=== PATIENT | female | born 1945 | race Caucasian/White ===

== ENCOUNTER 2023-03-10 05:01 | Observation (INO) ==
--- NOTE | 2023-03-04 12:22 | PAT Medication Instructions ---
Medication Instructions Date of Service March 04, 2023 Home Medications acetaminophen 500 mg tablet 500 mg PO BID cyanocobalamin (vitamin B-12) 500 mcg tablet (Vitamin B-12) 500 mcg PO QAM lisinopril 2.5 mg tablet 2.5 mg PO QAM multivitamin 1 tab PO QAM omeprazole 20 mg capsule,delayed release 20 mg PO QAM simvastatin 40 mg tablet (Zocor) 40 mg PO QAM sucralfate 1 gram tablet 1 g PO ACHS PRN severe heartburn DO NOT take the morning of surgery cyanocobalamin (vitamin B-12) 500 mcg tablet (Vitamin B-12) 500 mcg PO QAM lisinopril 2.5 mg tablet 2.5 mg PO QAM multivitamin 1 tab PO QAM sucralfate 1 gram tablet 1 g PO ACHS PRN severe heartburn Take morning of surgery With a small sip of water, OTHERWISE NOTHING TO EAT OR DRINK AFTER MIDNIGHT: acetaminophen 500 mg tablet 500 mg PO BID omeprazole 20 mg capsule,delayed release 20 mg PO QAM simvastatin 40 mg tablet (Zocor) 40 mg PO QAM Take evening before surgery acetaminophen 500 mg tablet 500 mg PO BID sucralfate 1 gram tablet 1 g PO ACHS PRN severe heartburn (if needed) Other Notes If you have any questions please call us at [phone] or [phone] or [phone] or [phone]
--- NOTE | 2023-03-04 15:26 | Anesthesiology Consultation ---
Date of Service March 04, 2023 Assessment & Plan (1) Encounter for pre-operative examination: - PCP response below and case discussed with Dr. Cai who advised patient can proceed with surgery without echo, but not as outpatient joint. Pt and surgeon's office made aware. - PCP response 03/05/23: "...no murmur on exam 03/05/23 echo not indicated." - medical clearance 03/25/23: "...pre-op...right knee...no murmur appreciated...approved for proposed surgery-benefits outweigh risks..." - Case discussed in detail with Dr. Razo who advised pt to have echocardiogram prior to surgery. Optimization form completed to be faxed to PCP. Pt and surgeon's office made aware. - Outpatient joint pathway: Per surgeon and patient, requesting outpatient joint program. Pt's son states he and another son will be staying in the home with his parents during pt's post-op course. Pt requiring admission post operatively. Plan for recheck with MARIELENA MONTOAY due to possibility that patient may have a roommate. OR aware. [place] order placed - [facility] Chart Review Chart Review: Acceptable Risk for Surgery and Patient seen in Pre Admission Testing Teaching & Discussion Pre-Anesthesia Teaching/Discussion Notes: Instructed NPO after midnight before surgery, except medications with 15 cc of water. Medication instructions p rovided according to the PAT guidelines. History Surgery Operation Date: 03/10/23 07:30 Proposed Procedures p Right Total Knee Arthroplasty - Dalton Eason MD Height/Weight Height: 5 ft 4 in Weight: 116.12 kg Allergies Allergy/AdvReac Type Severity Reaction Status Date / Time Sulfa (Sulfonamide Allergy Intermediate SLOW HEART Verified 03/10/23 05:31 Antibiotics) RATE Medications Home Medications Medication Instructions Recorded Confirmed Last Taken acetaminophen 500 mg tablet 500 mg PO BID 03/04/23 03/10/23 03/10/23 03:30 cyanocobalamin (vitamin B-12) 500 500 mcg PO QAM 03/04/23 03/10/23 02/24/23 07:00 mcg tablet (Vitamin B-12) lisinopril 2.5 mg tablet 2.5 mg PO QAM 03/04/23 03/10/23 03/09/23 08:00 multivitamin 1 tab PO QAM 03/04/23 03/10/23 02/24/23 07:00 omeprazole 20 mg capsule,delayed 20 mg PO QAM 03/04/23 03/10/23 03/10/23 02:30 release simvastatin 40 mg tablet (Zocor) 40 mg PO QAM 03/04/23 03/10/23 03/09/23 20:00 sucralfate 1 gram tablet 1 g PO ACHS PRN severe heartburn 03/04/23 03/10/23 Unknown Active Medications Generic Name Dose Route Start Last Admin Trade Name Freq PRN Reason Stop Dose Admin Lactated Ringer's 1,000 mls @ 15 mls/hr 03/10/23 06:00 03/10/23 06:10 Lr IV 03/10/23 18:00 15 mls/hr .Q24H PIPER Administration Past Medical History Medical History Anemia hx (~) Cardiac murmur as a child - no current issues Degenerative disc disease cervical GERD (gastroesophageal reflux disease) controlled, stable per pt History of bleeding ulcers ~ Hyperlipidemia Hypertension controlled, stable per pt Kidney stones no surgery - passed on her own Ulcerative colitis doing well, no current issues. Patient denies h/o stroke, seizures, heart attack, heart failure, DM, blood clots or blood transfusions. Exercise / Class Metabolic Activity III < 4 Walking/Shop/Light housework (denies chest discomfort or shortness of breath with usual activities, does not have steps home) Past Family History Family History Other No family history of adverse response to anesthesia Past Surgical History Surgical History History of appendectomy History of bilateral tubal ligation History of cholecystectomy History of colonoscopy History of esophagogastroduodenoscopy (EGD) History of repair of rectocele History of tonsillectomy History of umbilical hernia repair Hx of vaginal hysterectomy Past Anesthesia History No Hx of Anesthesia Complications and No Family Hx of Anesthesia Complications History of PONV No Hx of Motion Sickness and History of PONV (denies needing scop patch) Social History Smoking Status: Never smoker Do You Dip or Chew Tobacco: No Hx Alcohol Use: No Hx Substance Use: No substance use type: does not use Review of Systems Patient denies chest pain, shortness of breath, dyspnea on exertion, snoring, witnessed apneas, fever, chills, cough, wheezing, dizziness, presyncope, or palpitations. Physical Exam Vital Signs Last Vital Signs Temp 98.1 F 03/10/23 05:27 Pulse 102 H 03/10/23 05:27 Resp 20 03/10/23 05:27 BP 178/77 H 03/10/23 05:27 Pulse Ox 96 03/10/23 05:27 O2 Del Method Room Air 03/10/23 05:27 Vitals BP 124/76 P 91 SP02 95% on RA RESP 18 Physical Full cervical extension range of motion without pain TMD 3.5 finger bredaths Mallampati Score 2 Dentition: intact, denies Lungs: normal respiratory effort. Clear throughout to auscultation, no adventitious breath sounds Cardiac: regular rate and rhythm, 2/6 systolic murmur Carotid arteries: negative bruit bilat Lab Results Anesthesia Preop Results Results Anesthesia Widget: WBC 5.08 K/ul (4.8-10.8) 03/04/23 Hgb 13.8 g/dl (12.0-16.0) 03/04/23 Hct 42.2 % (37.0-47.0) 03/04/23 Plt 180 K/uL (130-400) 03/04/23 Na 143 mmol/L (136-145) 03/04/23 K 3.9 mmol/L (3.5-5.1) 03/04/23 Cl 108 mmol/L (98-107) H 03/04/23 CO2 27 mmol/L (21-32) 03/04/23 BUN 10 mg/dl (6-23) 03/04/23 Creat 0.87 mg/dl (0.6-1.2) 03/04/23 Glucose Level 86 mg/dl (70-99(Fasting)) 03/04/23 PT 10.5 Seconds (9.0-12.0) 03/04/23 PTT 25.6 Seconds (21.0-31.0) 03/04/23 INR 1.0 (0.9-1.1) 03/04/23 SARS-CoV-2, RNA, NAAT NEGATIVE (NEGATIVE) 03/10/23 Blood Type O Positive 03/04/23 Antibody Screen NEGATIVE 03/04/23 Testing Electrocardiogram Date: 03/04/23 NSR, rate 92 bpm RBBB Chest X-Ray Date: 03/04/23 Lung volumes are normal. Lungs are clear. There is no pneumothorax or pleural effusion. Cardiac size is normal. Mediastinal contours are normal. There is no evidence for pulmonary edema. IMPRESSION: No acute cardiopulmonary findings. COVID-19 Risk Screen Screening Information COVID-19 Screen Date: 03/04/23 Exposure 21 Days Family/Household +COVID Last 21 Days: No Exposure 10 Days Any COVID Exposure Last 10 Days: No Symptoms Last 10 Days Experienced COVID Sx Last 10 Days: No + COVID 0-90 Days COVID + in Last 0-90 Days: No
[2023-03-10] MEDS ORDERED: ACETAMINOPHEN 500 MG TAB PO SCH (06:00)
[2023-03-10] MEDS ORDERED: ROPIVACAINE 0.5% HCL/PF 150 MG, BUPIVACAINE 0.75% MPF 20 ML, EPINEPHrine 0.15 MG, Ketor... INFIL SCH (06:00)
[2023-03-10] MEDS ORDERED: FAMOTIDINE 20 MG TAB PO SCH (06:00)
[2023-03-10] MEDS ORDERED: LR 500ML BOLUS, THEN 15ML/HR IV SCH (06:00)
[2023-03-10] MEDS ORDERED: dexAMETHasone 4 MG TAB PO SCH (06:00)
[2023-03-10] MEDS ORDERED: CeleBREX 200 MG CAP PO SCH (06:00)
[2023-03-10] MEDS ORDERED: LACTATED RINGER'S 1,000 ML IV SCH (06:00)
[2023-03-10] MEDS ORDERED: ROPIVACAINE 0.5% 5 MG/ML 30 ML VIAL ONE (06:20)
[2023-03-10] MEDS ORDERED: BUPIVACAINE 0.5 % 5 MG/1 ML PF 10ML VIAL ONE (06:20)
[2023-03-10] MEDS ORDERED: MIDAZOLAM HCL 1 MG/ML 2ML VIAL ONE (06:44)
[2023-03-10] MEDS ORDERED: fentaNYL citrate PF 100 MCG/2 ML VIAL ONE (06:44)
[2023-03-10] MEDS ORDERED: ePHEDrine sulfate 50 MG/ML AMP IV PRN (07:02)
[2023-03-10] MEDS ORDERED: fentaNYL citrate PF 100 MCG/2 ML VIAL IV PRN (07:02)
[2023-03-10] MEDS ORDERED: ONDANSETRON INJ 2 MG/ML 2 ML VIAL IV PRN ×2 (07:02→09:01)
[2023-03-10] MEDS ORDERED: ATROPINE SULFATE 0.1 MG/ML 10ML SYR IV PRN (07:02)
[2023-03-10] MEDS ORDERED: ORTHO JOINT ANESTHETIC ONE (07:06)
[2023-03-10] MEDS ORDERED: TRANEXAMIC ACID / 0.7% NACL 1000MG/100ML BAG IV ONE (07:13)
--- NOTE | 2023-03-10 07:14 | History & Physical Report ---
Date of Service March 10, 2023 Assessment & Plan (1) Osteoarthritis of right knee: Plan: I recommended a right total knee replacement. I explained the risk benefits and alternatives to the patient. She understands and has consented to proceed. History of Present Illness Chief Complaint: Right knee pain Primary Care Provider: Kasey Dang MD Caryl is a 77-year-old woman with right knee osteoarthritis. After the failure of conservative treatment I recommended proceeding with a right total knee replacement. Allergies Allergy/AdvReac Type Severity Reaction Status Date / Time Sulfa (Sulfonamide Allergy Intermediate SLOW HEART Verified 03/10/23 05:31 Antibiotics) RATE Home Medications Medication Instructions Recorded Confirmed Type acetaminophen 500 mg tablet 500 mg PO BID 03/04/23 03/10/23 History cyanocobalamin (vitamin B-12) 500 500 mcg PO QAM 03/04/23 03/10/23 History mcg tablet (Vitamin B-12) lisinopril 2.5 mg tablet 2.5 mg PO QAM 03/04/23 03/10/23 History multivitamin 1 tab PO QAM 03/04/23 03/10/23 History omeprazole 20 mg capsule,delayed 20 mg PO QAM 03/04/23 03/10/23 History release simvastatin 40 mg tablet (Zocor) 40 mg PO QAM 03/04/23 03/10/23 History sucralfate 1 gram tablet 1 g PO ACHS PRN severe heartburn 03/04/23 03/10/23 History Past Med/Surg History Medical History Anemia hx (~) Cardiac murmur as a child - no current issues Degenerative disc disease cervical GERD (gastroesophageal reflux disease) controlled, stable per pt History of bleeding ulcers ~ Hyperlipidemia Hypertension controlled, stable per pt Kidney stones no surgery - passed on her own Ulcerative colitis doing well, no current issues. Surgical History History of appendectomy History of bilateral tubal ligation History of cholecystectomy History of colonoscopy History of esophagogastroduodenoscopy (EGD) History of repair of rectocele History of tonsillectomy History of umbilical hernia repair Hx of vaginal hysterectomy Family History Other No family history of adverse response to anesthesia Social History Smoking Status: Never smoker Second Hand Exposure: No; Do You Dip or Chew Tobacco: No; Tobacco Cessation Education Requested by Patient: No Hx Alcohol Use: No Hx Substance Use: No Preferred Language: Georgian Communication Ability: Effective Mangle Feeder Required: No Beliefs That Will Affect Care: None Current Living Situation: Spouse Other Information That Helps Us Care for You: No Feels Safe at Home: Yes Safety Concerns: Feels Safe At This Time Assistive Devices: Denture - Upper, Denture - Lower and Glasses Physical Exam Constitutional: Well-developed, well-nourished, no acute distress Eyes: PERRL, conjunctivae normal, anicteric sclerae ENMT: external ear and nose normal, oropharynx normal Neck: Neck supple, no masses Respiratory: Clear to auscultation Cardiovascular: Regular rate and rhythm Gastrointestinal (Abdomen): Soft nontender Musculoskeletal: Right knee, decreased range of motion, decreased strength. Tender medially and laterally. Skin: Intact Results & Data Results & Data Vital Signs (Past 12 Hours) Vital Signs Temp Pulse Resp BP Pulse Ox O2 Del Method 03/10/23 05:27 36.7 C 102 H 20 178/77 H 96 Room Air
[2023-03-10] MEDS ORDERED: dexAMETHasone 4 MG TAB PO ONE (07:15)
[2023-03-10] MEDS ORDERED: FAMOTIDINE 20 MG TAB ONE (07:15)
[2023-03-10] MEDS ORDERED: CeleBREX 200 MG CAP ONE (07:15)
[2023-03-10] MEDS ORDERED: ACETAMINOPHEN 500 MG TAB ONE (07:15)
[2023-03-10] MEDS: TRANEXAMIC ACID / 0.7% NACL 1,000 MG/100 ML BAG IV SCH (07:26)
[2023-03-10] MEDS: ceFAZolin 2,000 MG/15 ML IV PUSH IV ONE ×2 (07:29→11:08)
[2023-03-10] MEDS ORDERED: LIDOCAINE 2% MPF LOCAL 5 ML VIAL ONE (08:05)
[2023-03-10] MEDS ORDERED: PROPOFOL IV EMULSION 10 MG/ML 20 ML VIAL IV ONE (08:05)
[2023-03-10] MEDS ORDERED: ePHEDrine sulfate 50 MG/ML SYR ONE (08:40)
--- NOTE | 2023-03-10 09:00 | Operative Report ---
Post Operative Report Pre & Post Diagnosis Operation Date: 03/10/23 07:30 Pre-Op Diagnosis: Primary Osteoarthritis Knee Right Post-Op Diagnosis: Primary Osteoarthritis Knee Right I identified the patient and participated in the time-out.: Yes Procedure Operation Date: 03/10/23 07:30 Actual Procedures p Right Total Knee Arthroplasty(Right) - Dalton Eason MD Surgeon Dalton Eason MD [employer] Samira Garcia PA-C Estimated Blood Loss 5 Findings Consistent with Post-Op Diagnosis Osteoarthritis right knee Specimens Bone and cartilage right knee Anesthesia Type MAC Spinal Regional Complications No complications Indications Caryl is a 77-year-old woman with right knee osteoarthritis. After the failure of conservative treatment I recommended a right total knee replacement. I explained the risk benefits and alternatives to her and she consented to proceed. Description of Procedure Implants: Subhash triathlon cemented cruciate retaining total knee replacement. Femur size 5. Tibia size 4. Polyethylene size 4 x 11 mm cruciate stabilized. Patella size 36 mm symmetrical. Procedure: The patient was taken to the operating room and after verifying their identity and confirming the operative side spinal anesthesia and a regional block was administered. A nonsterile tourniquet was placed on the operative leg and the operative leg was sterilely prepped and draped in usual fashion. After exsanguinating the leg and inflating the tourniquet a 6 inch incision was made over the patella and carried sharply through subcutaneous tissue. A medial parapatellar arthrotomy was performed, the patella was everted, and planed to a thickness of 14 mm. The appropriate size patella was trialed and the drill holes were completed. The knee was flexed and the femur cleaned of soft tissue. The femoral intramedullary guide was utilized to take a 5 valgus cut 10 mm total resection. The distal femur cut was completed. The cutting guide was removed. The AP sizing guide was placed in the correct size determined. The appropriately sized sized 4 in 1 cutting guide was placed and its position confirmed with the epicondyle axis and anterior cortex. The cuts were comp leted. The tibia was subluxed forward and the extra medullary tibial guide was placed and pinned in place. A 2 mm resection was measured on the medial tibial plateau perpendicular to the long axis of the tibia. The proximal tibia was cut. The guide was removed. A lamina rn heart was placed with the knee in 90 of flexion in the remaining meniscus and posterior soft tissue were removed. The PCL was preserved. 20 cc of local injection was utilized in the posterior capsule and soft tissues. The knee was balanced in flexion and extension utilizing the gap certified executive chef. The tibia was subluxed forward and the appropriately sized trial was placed and pinned in place. The femoral trial was placed and the appropriate size poly-was utilized to achieve full extension, full flexion and good stability to varus and valgus stress. Trial components were all removed. The knee was thoroughly irrigated with pulse lavage, bacteriocidal wash, and a repeat pulse lavage. 20 cc of local injection was utilized in the medial tissues and 20 cc in the lateral tissues. Antibiotic cement was mixed using vacuum technique in the tibial and femoral components were cemented in place. The poly-was inserted and the knee held in full extension while the cement hardened. The patella was cemented and clamped. Excess cement was carefully removed. After the cement hardened range of motion was once again assessed and noted to be full including full extension and good stability to varus and valgus stress with central patellar tracking. The knee was irrigated with pulse lavage, a bacteriocidal wash, and a repeat pulse lavage. 20 cc of local was used in the anterior subcutaneous tissues. The arthrotomy was closed with #1 Ethibond, the remaining incision with 2-0 Vicryl and maribel. A silver dressing was applied and a compression wrap. The patient tolerated the procedure well and there were no intraoperative complications. Samira Garcia PA-C assisted in all aspects of the procedure including patient positioning, prepping and draping, manipulation of surgical instruments and retractors, wound closure, dressing placement, and compression wrap placement. I attest to the content of the Intraoperative Record and any orders documented therein. Any exceptions are noted below.
[2023-03-10] MEDS ORDERED: oxyCODONE HCL IR 5 MG TAB (IMMEDIATE RELEASE) PO PRN (09:01)
[2023-03-10] MEDS ORDERED: MAGNESIUM HYDROXIDE SUSP 30 ML UDC PO PRN (09:01)
[2023-03-10] MEDS ORDERED: NALOXONE HCL 0.4 MG/1 ML VIAL/CARP IV PRN (09:01)
[2023-03-10] MEDS ORDERED: bisacodyL 10 MG SUPP PR PRN (09:01)
[2023-03-10] MEDS ORDERED: SUCRALFATE 1 GM TAB PO PRN (09:09)
--- NOTE | 2023-03-10 10:06 | Anesthesiology Progress Note ---
Date of Service March 10, 2023 Anesthesia Post Procedure Vital Signs Vital Signs: Temp Pulse Pulse Resp BP BP Pulse Ox 03/10/23 10:00 97.7 F 77 12 149/73 H 97 03/10/23 09:50 86 17 141/69 H 94 03/10/23 09:40 87 14 142/78 H 95 03/10/23 09:30 84 13 132/71 100 03/10/23 09:22 97.5 F L 94 H 21 137/58 L 100 03/10/23 05:27 98.1 F 102 H 20 178/77 H 96 O2 Del Method O2 Flow Rate 03/10/23 10:00 Room Air 03/10/23 09:50 Room Air 03/10/23 09:40 Room Air 03/10/23 09:30 Oxymask 4 03/10/23 09:22 Oxymask 6 03/10/23 05:27 Room Air Transfer of Care Handoff Completed per policy Notes Mental Status: alert / awake / arousable and participated in evaluation Patient Amnestic to Procedure: Yes Nausea / Vomiting: adequately controlled Pain: adequately controlled Airway Patency, RR, SpO2: stable & adequate BP & HR: stable & adequate Hydration State: stable & adequate Neuraxial Anesthesia: was administered and sensory block is resolving Anesthetic Complications: no major complications apparent and Pt Satisfied with anesthetic care
[2023-03-10] MEDS: SODIUM CHLORIDE 0.9% 1000ML 1,000 ML IV SCH ×2 (10:43→20:19)
--- NOTE | 2023-03-10 11:01 | Hospitalist Consultation ---
Date of Consultation March 10, 2023 Assessment & Plan (1) Osteoarthritis of right knee: s/p Right Total Knee Arthroplasty(Right) - Dalton Eason MD EBL 5cc PPI on board for GI prophylaxis, carafate if needed prn Pain control/bowel regimen/PT/OT per primary service DVT prophylaxis with ASA 81mg BID Monitor labs in AM (2) Hypertension: BP stable 139/73 Hold lisinopril for now/monitor labs in AM/monitor for any hypotension. If significant HTn can resume sooner. (3) Hyperlipidemia: On simvastatin 40mg daily, continued (4) GERD (gastroesophageal reflux disease): On protonix while inpatient -- resume her omeprazole at discharge no reflux at present hx ulcers -- did get steroids w/ surgery can add pepcid vs increase PPI to BID if needed carafate available prn severe heartburn as well as she takes at home Plan Thank you for allowing hospitalist service to participate in the care of Mrs Kerns. Hospitalist service will follow up in AM/check labs/neuro exam, but hopefully patient able to discharge tomorrow after evals by PT/OT. Please call with any questions/concerns. History of Present Illness Reason for Consultation: medical management Requesting Physician: Dr Eason Attending Physician: Dalton Eason MD History of Present Illness 77yo female with PMHx significant for HTN, HLD, GERD, OA, ulcerative colitis presented for RIGHT total knee with Dr Eason 03/10. EBL 5cc. Doing well post-op. Titrated to room air. No shortness of breath or chest pain. Hasn't eating anything yet. Pain controlled, toes mobile but block still in place and decreased ability to plantar/dorsiflex at present. No hx DVT/PE. Watches what she eats/avoids greasy foods w/ her UC but not on any meds or recent treatment for issues with such. Sh e does note when she has to go to the bathroom she does have some urgency to move her bowels and would like nursing to be aware of such. No machuca placed. Had been having ongoing pain to her knee, worsened in the past two months, requiring surgery. No headache/lightheadedness, dizziness, abdominal pain, nausea or vomiting at present. No machuca placed. Planning for discharge tomorrow per patient - and two sons at bedside. Allergies Allergy/AdvReac Type Severity Reaction Status Date / Time Sulfa (Sulfonamide Allergy Intermediate SLOW HEART Verified 03/10/23 05:31 Antibiotics) RATE Home Medications Medication Instructions Recorded Confirmed Type acetaminophen 500 mg tablet 500 mg PO BID 03/04/23 03/10/23 History cyanocobalamin (vitamin B-12) 500 500 mcg PO QAM 03/04/23 03/10/23 History mcg tablet (Vitamin B-12) lisinopril 2.5 mg tablet 2.5 mg PO QAM 03/04/23 03/10/23 History multivitamin 1 tab PO QAM 03/04/23 03/10/23 History omeprazole 20 mg capsule,delayed 20 mg PO QAM 03/04/23 03/10/23 History release simvastatin 40 mg tablet (Zocor) 40 mg PO QAM 03/04/23 03/10/23 History sucralfate 1 gram tablet 1 g PO ACHS PRN severe heartburn 03/04/23 03/10/23 History Patient History Medical History Anemia hx (~) Cardiac murmur as a child - no current issues Degenerative disc disease cervical GERD (gastroesophageal reflux disease) controlled, stable per pt History of bleeding ulcers ~ Hyperlipidemia Hypertension controlled, stable per pt Kidney stones no surgery - passed on her own Ulcerative colitis doing well, no current issues. Surgical History History of appendectomy History of bilateral tubal ligation History of cholecystectomy History of colonoscopy History of esophagogastroduodenoscopy (EGD) History of repair of rectocele History of tonsillectomy History of umbilical hernia repair Hx of vaginal hysterectomy Family History Other No family history of adverse response to anesthesia Social History Smoking Status: Never smoker Second Hand Exposure: No; Do You Dip or Chew Tobacco: No; Tobacco Cessation Education Requested by Patient: No Hx Alcohol Use: No Hx Substance Use: No Preferred Language: Polish Communication Ability: Effective Counselling Psychologist Required: No Beliefs That Will Affect Care: None Current Living Situation: Spouse Other Information That Helps Us Care for You: No Feels Safe at Home: Yes Safety Concerns: Feels Safe At This Time Assistive Devices: Denture - Upper, Denture - Lower and Glasses Review of Systems Review of Systems: All systems reviewed & are unremarkable except as noted in HPI & below Physical Exam Physical Exam: General: WD/WN obese female sitting up in bed post-op, and two sons at bedside, NAD HEENT: head normocephalic, atraumatic, mmm, trachea midline Resp: CTA, no w/c, on room air CV: RRR, no significant m/r/g, trace LE edema, calves nontender RLE rudy wrap in place/ice pack cap refill wnl, pulses palpable GI: +BS, soft/NT : no machuca MSK/Neuro: dressing/rudy wrap to R knee. Ice pack in place Toes mobile. Decreased ability to dorsiflex/plantar flex RLE compared to the left at present due to nerve block no facial droop/slurred speech Psych: AOx3, pleasant and cooperative Results & Data Results & Data Vital Signs (Past 12 Hours) Vital Signs Temp Pulse Pulse Resp BP BP Pulse Ox 03/10/23 10:30 36.9 C 89 16 139/73 95 03/10/23 10:20 82 12 151/66 H 95 03/10/23 10:10 78 17 140/70 95 03/10/23 10:00 36.5 C 77 12 149/73 H 97 03/10/23 09:50 86 17 141/69 H 94 03/10/23 09:40 87 14 142/78 H 95 03/10/23 09:30 84 13 132/71 100 03/10/23 09:22 36.4 C L 94 H 21 137/58 L 100 03/10/23 05:27 36.7 C 102 H 20 178/77 H 96 O2 Del Method O2 Flow Rate 03/10/23 10:30 Room Air 03/10/23 10:20 Room Air 03/10/23 10:10 Room Air 03/10/23 10:00 Room Air 03/10/23 09:50 Room Air 03/10/23 09:40 Room Air 03/10/23 09:30 Oxymask 4 03/10/23 09:22 Oxymask 6 03/10/23 05:27 Room Air Laboratory Results 03/10/23 Range/Units 05:20 SARS-CoV-2, RNA, NAAT NEGATIVE (NEGATIVE) PG Care Time/CCT Total # of Minutes Spent Total Time Spent with Patient: Total time spent is greater than 50% in coordination of care (as documented) at patient's floor/unit and/or counseling patient: Coding Level of Care Code 07651 IN/OBS CONSULT LVL 3,45M Diagnoses Osteoarthritis of right knee M17.11 Hypertension I10 Hyperlipidemia E78.5 GERD (gastroesophageal reflux disease) K21.9 CPT Codes Outpatient - [id number] ([id number])
[2023-03-10] MEDS: ACETAMINOPHEN 500 MG TAB PO SCH ×2 (15:28→21:53)
[2023-03-10] MEDS: ceFAZolin 2000MG 2,000 MG/15 ML SYR IV SCH ×2 (17:07→23:47)
[2023-03-10] MEDS ORDERED: SENNA 8.6 MG TAB PO SCH (21:00)
[2023-03-10] MEDS: CeleBREX 200 MG CAP PO SCH (21:54)
[2023-03-10] MEDS: DOCUSATE SODIUM 100 MG CAP PO SCH (21:55)
[2023-03-10] MEDS: ASPIRIN 81 MG ECTAB PO SCH (21:55)
[2023-03-11] MEDS: TRANEXAMIC ACID / 0.7% NACL 1,000 MG/100 ML BAG IV SCH (05:17)
[2023-03-11] MEDS ORDERED: ceFAZolin 2000MG 2,000 MG/15 ML SYR IV SCH (06:00)
[2023-03-11] MEDS: ACETAMINOPHEN 500 MG TAB PO SCH (06:19)
[2023-03-11] MEDS ORDERED: dexAMETHasone 10 MG in SYRINGE 0 ML IV ONE (08:00)
--- NOTE | 2023-03-11 08:16 | Orthopedic Progress Note ---
Date of Service March 11, 2023 Assessment & Plan (1) Osteoarthritis of right knee: Plan: Postop day 1 PT/OT protocols. Weightbearing as tolerated. DVT prophylaxis-aspirin p.o. twice daily, SCDs, DAQUAN clark Pain management as written. DC planning-patient is planning for discharge to home today. Planning for outpatient PT Admission and Anticipated Discharge Date Admission Date: March 10, 2023 Subjective Postop day 1 Patient currently going through her OT session. States that she is progressing well. She is ambulating in the room independently with her walker. She is having some mild pain in the right knee but feels otherwise well. Denies shortness of breath, chest pain, lightheadedness. She is hoping to go home today. Physical Exam Physical Exam: Dressings are clean, dry, and intact. Calves are soft nontender. Neurovascular intact. Toes are mobile. She has good dorsiflexion plantarflexion of the right foot. Results & Data Vital Signs (Past 12 Hours) Vital Signs Temp Pulse Resp BP Pulse Ox O2 Del Method 03/11/23 06:03 36.8 C 82 15 122/73 95 Room Air 03/11/23 02:30 36.7 C 84 19 147/78 H 95 Room Air 03/10/23 23:13 36.6 C 86 18 132/72 95 Room Air
[2023-03-11 08:26] LABS: Hematocrit (blood only) 35.8 % (37.0-47.0); Hemoglobin 11.8 g/dl (12.0-16.0); Mean Corpuscular Hemoglobin 31.6 pg (25.0-34.0); Mean Corpuscular Volume 95.7 fL (80.0-100.0); Mean Platelet Volume 10.3 fL (9.4-12.4); Platelet Count 178 K/uL (130-400); RDW Coefficient of Variation 13.7 % (11.5-14.5); RDW Standard Deviation 48.5 fL (36.4-46.3); Red Blood Count 3.74 M/uL (4.20-5.40); White Blood Count 8.53 K/ul (4.8-10.8)
[2023-03-11 08:37] LABS: BUN Creatinine Ratio 13.7 (10-20); Calcium 8.6 mg/dl (8.6-10.3); Est GFR (African American) 67.4 ml/min; Est GFR (Non-African American) 58.2 ml/min; Potassium 3.4 mmol/L (3.5-5.1)
[2023-03-11] MEDS ORDERED: MULTIVITAMIN TAB PO SCH (09:00)
[2023-03-11] MEDS ORDERED: PANTOprazole 40 MG TAB PO SCH (09:00)
[2023-03-11] MEDS ORDERED: lisinopril 2.5 MG TAB PO SCH (09:00)
[2023-03-11] MEDS ORDERED: SIMVASTATIN 40 MG TAB PO SCH (09:00)
[2023-03-11] MEDS: DOCUSATE SODIUM 100 MG CAP PO SCH (09:21)
[2023-03-11] MEDS: CeleBREX 200 MG CAP PO SCH (09:21)
[2023-03-11] MEDS: ASPIRIN 81 MG ECTAB PO SCH (09:22)
[2023-03-11] MEDS ORDERED: POTASSIUM CHLORIDE 10 MEQ TABCR PO STA (12:05)
--- NOTE | 2023-03-14 11:06 | Discharge Summary ---
Date of Service March 14, 2023 Admission HPI Per Admitting Provider Caryl is a 77-year-old woman with right knee osteoarthritis. After the failure of conservative treatment I recommended proceeding with a right total knee replacement. Principal Diagnosis DJD Right Knee Discharge Exam Dressings are clean, dry, and intact. Calves are soft nontender. Neurovascular intact. Toes are mobile. She has good dorsiflexion plantarflexion of the right foot. Eyes PERRL, conjunctivae normal, anicteric sclerae ENMT external ear and nose normal, oropharynx normal Discharge Data Allergies Allergy/AdvReac Type Severity Reaction Status Date / Time Sulfa (Sulfonamide Allergy Intermediate SLOW HEART Verified 03/10/23 05:31 Antibiotics) RATE Consultations 03/10/23 09:01 Consult Hospitalist Routine Procedures Performed Operation Date: 03/10/23 07:30 Actual Procedures p Right Total Knee Arthroplasty(Right) - Dalton Eason MD Ordered Studies 03/10/23 05:00 US - OR guided needle placemen Routine Hospital Course (1) Osteoarthritis of right knee: Postop day 1 PT/OT protocols. Weightbearing as tolerated. DVT prophylaxis-aspirin p.o. twice daily, SCDs, DAQUAN clark Pain management as written. DC planning-patient is planning for discharge to home today. Planning for outpatient PT Total Time Total Time Spent Total Time Spent (In Minutes): 30 minutes Discharge Plan Discharge Items Patient Disposition: Home - Self-Care Reason For Visit: Primary Osteoarthritis Knee Right Discharge Diagnosis: Osteoarthritis right knee Activity: Per Instructions section Weightbearing: Right weightbearing Weightbearing Comment: As tolerated with walker Non-emergency contact: Surgeon Call non-emergency contact if: you have any medication questions, your pain is not controlled, your temperature is above 101.5, your wound has increased redness and your wound has increased drainage Follow-up/Referrals: Dalton Eason MD [Surgeon] - (Follow-up with Dr. Eason or his PA in 2 weeks from the day of surgery for your first postoperative visit.) PCP,NO [Physician] - Diet: Regular Addtl Attending Provider Instructions: Take aspirin 81mg twice daily x 30 days for DVT prophylaxis. Post-op medications sent to your pharmacy on file. Please call Dr. Eason's office for any questions about your medications. Post-op pain medication sent in to patient's pharmacy on file. Post-op dressing to remain in place for 7 days. Dressing can be removed 7 days following surgery by home nursing. Patient may shower 7 days following surgery. Do not submerge the knee. WBAT. Discharge to home with home nursing and home physical therapy. Pending Studies at Discharge: No Stand-Alone Forms: My BreathalEyes, Smoking Cessation Medications and DC Order Prescriptions: Continued multivitamin Tablet 1 tab PO QAM sucralfate 1 gram Tablet 1 g PO ACHS PRN (Reason: severe heartburn) acetaminophen 500 mg Tablet 500 mg PO BID cyanocobalamin (vitamin B-12) [Vitamin B-12] 500 mcg Tablet 500 mcg PO QAM omeprazole 20 mg Capsule,Delayed Release(Dr/Ec) 20 mg PO QAM lisinopril 2.5 mg Tablet 2.5 mg PO QAM simvastatin [Zocor] 40 mg Tablet 40 mg PO QAM Discharge Orders: Discharge Order (Routine); Ordered 03/11/23 Ordered By: Norberto Belcher/Other Patient Handouts: DVT Post Op Prevention Admission Data Admit Date/Time: 03/10/23 09:01 Attending Provider: Dalton Eason Admit Provider: Dalton Eason Primary Care Provider: Kasey Dang Other Providers: Samira Yates Other Interventions: Discharge Summary Assessment (RN) Last Done: 03/11/23 09:40
== END 2023-03-11 12:07 | disposition home or self-care (01) ==
LOC: ASU 05:01 → 3E 05:01

== ENCOUNTER 2024-08-05 17:10 | Observation (INO) ==
--- NOTE | 2024-08-05 17:45 | Emergency Department Note ---
History of Present Illness General Chief complaint: Fall Stated complaint: FALL, L KNEE LAC Time Seen by Provider: 08/05/24 17:21 History of Present Illness Maximum Pain Intensity: 7 This is a 78-year-old female that presents to the emergency department via EMS with complaints of "right knee laceration". The patient is an excellent historian and notes that earlier today she tripped on a rug and fell. She landed on a rather hard floor and just underneath the rug was concrete. She landed on both of her anterior knees and notes that the right knee sustained a laceration. She denies striking any sharp objects. She denies striking the head. No anticoagulant use. She does note history of bilateral total knee replacements, right knee replaced in March 2023. The patient denies any other areas of pain beyond the right knee. Ambulance was summoned and she was brought here for further evaluation and management. She does not think her tetanus vaccine is UTD. Home Medications Medication Instructions Recorded Confirmed Type acetaminophen 500 mg tablet 500 mg PO BID 03/04/23 03/10/23 History cyanocobalamin (vitamin B-12) 500 500 mcg PO QAM 03/04/23 03/10/23 History mcg tablet (Vitamin B-12) lisinopril 2.5 mg tablet 2.5 mg PO QAM 03/04/23 03/10/23 History multivitamin 1 tab PO QAM 03/04/23 03/10/23 History omeprazole 20 mg capsule,delayed 20 mg PO QAM 03/04/23 03/10/23 History release simvastatin 40 mg tablet (Zocor) 40 mg PO QAM 03/04/23 03/10/23 History sucralfate 1 gram tablet 1 g PO ACHS PRN severe heartburn 03/04/23 03/10/23 History Allergies Allergy/AdvReac Type Severity Reaction Status Date / Time Sulfa (Sulfonamide Allergy Intermediate SLOW HEART Verified 03/10/23 05:31 Antibiotics) RATE Past Med/Surg History Problem List Laceration of knee, right (Acute) GERD (gastroesophageal reflux disease) controlled, stable per pt Hyperlipidemia Hypertension controlled, stable per pt Osteoarthritis of right knee Left knee DJD Medical History Degenerative disc disease cervical Kidney stones no surgery - passed on her own Ulcerative colitis doing well, no current issues. History of bleeding ulcers ~ Anemia hx (~) Cardiac murmur as a child - no current issues Surgical History History of repair of rectocele Hx of vaginal hysterectomy History of bilateral tubal ligation History of umbilical hernia repair History of cholecystectomy History of appendectomy History of colonoscopy History of esophagogastroduodenoscopy (EGD) History of tonsillectomy Family History Other No family history of adverse response to anesthesia Social History Smoking Status: Never smoker Second Hand Exposure: No; Do You Dip or Chew Tobacco: No; Tobacco Cessation Education Requested by Patient: No Hx Alcohol Use: No Hx Substance Use: No Preferred Language: Beninese Communication Ability: Effective Traffic Officer Required: No Beliefs That Will Affect Care: None Current Living Situation: Spouse Other Information That Helps Us Care for You: No Feels Safe at Home: Yes Safety Concerns: Feels Safe At This Time Assistive Devices: Denture - Upper and Denture - Lower Review of Systems A total of 10 systems reviewed and were otherwise negative Physical Exam Vital Signs Vital Signs - 24 hr 08/05/24 17:17 08/05/24 19:16 08/05/24 21:06 Temperature 37.0 C Temperature Source Oral Pulse Rate 100 H 78 Pulse Rate [Finger] 92 H Pulse Rhythm Regular Pulse Rhythm [Finger] Regular Pulse Strength Normal Pulse Strength [Finger] Normal Respiratory Rate 18 18 16 Respiratory Effort / Characteristics Non-Labored Non-Labored Spontaneous Respiratory Depth Normal Normal Respiratory Pattern Regular Regular Blood Pressure 153/86 H 136/75 Blood Pressure [Left Arm] 142/70 H Blood Pressure Mean 108 Blood Pressure Mean [Left Arm] 94 Blood Pressure Position Lying Pulse Oximetry 96 97 97 Oxygen Delivery Method Room Air Room Air Room Air Sepsis Recent Fever Within 48 Hours No Sepsis New/Unexplained Change in Mental Status N/A Sepsis Action Taken by Nursing No Action Required VITAL SIGNS - Vital signs and nursing notes were reviewed. Stable and afebrile. GENERAL -78-year-old female appearing her stated age who is in no acute distress. Communicates well with provider and answers questions appropriately. SKIN -large horizontally oriented laceration overlying the right knee. This does track deep into the tissues. HEAD - NC/AT. EYES - Sclera anicteric. NOSE -no epistaxis. MOUTH/OROPHARYNX - Without perioral cyanosis. No blood in the oropharynx. NECK -no C-spine tenderness. LUNGS -clear to auscultation CARDIAC - RRR EXTREMITIES - No clubbing or peripheral cyanosis. +5/5 strength noted in UE/LE bilaterally. There is a laceration to the knee noted. There is tenderness at the laceration site but otherwise right lower extremity nontender. NEUROLOGIC - Cranial nerves grossly intact. PSYCH -alert, oriented and pleasant on exam Course Administered Medications Acetaminophen (Acetaminophen 500 Mg Tab) 1,000 mg PO Q8 [facility] Stop: 09/05/24 05:59 Last Admin: 08/06/24 05:26 Dose: 1,000 mg Documented By: THANH Cyanocobalamin (Cyanocobalamin (B-12) 500 Mcg Tablet) [facility] [place] Stop: 09/05/24 08:59 Last Admin: 08/06/24 08:12 Dose: 500 mcg Documented By: KARON Docusate Sodium (Docusate Sodium 100 Mg Cap) 100 mg PO BID [facility] Stop: 09/05/24 08:59 Last Admin: 08/06/24 08:13 Dose: Not Given Documented By: KARON Hydromorphone HCl (Hydromorphone Inj 0.5 Mg/0.5 Ml Syr) 0.5 mg IV Q4H PRN PRN Reason: Pain or Pre PT Stop: 08/19/24 22:30 Last Admin: 08/06/24 00:05 Dose: 0.5 mg Documented By: THANH Cefazolin Sodium (Ancef 2000mg) 2,000 mg in 15 mls @ 3.75 mls/min IV Q8H [facility]; Protocol Stop: 08/06/24 12:03 Last Admin: 08/06/24 04:09 Dose: 3.75 mls/min Documented By: THANH Lisinopril (Lisinopril 2.5 Mg Tab) 2.5 mg PO QAM [facility] Stop: 09/05/24 08:59 Last Admin: 08/06/24 08:11 Dose: 2.5 mg Documented By: KARON Multivitamins (Multivitamin Tab) 1 tab [facility] [place] Stop: 09/05/24 08:59 Last Admin: 08/06/24 08:11 Dose: 1 tab Documented By: KARON Pantoprazole Sodium (Pantoprazole 40 Mg Tab) 40 [facility] [place] Stop: 09/05/24 08:59 Last Admin: 08/06/24 08:12 Dose: 40 mg Documented By: KARON Simvastatin (Simvastatin 40 Mg Tab) 40 mg PO [facility] Stop: 09/05/24 08:59 Last Admin: 08/06/24 08:13 Dose: 40 mg Documented By: KARON Trolamine Salicylate (Trolamine Salicylate 10% Crm 255 Appln/85 Gm Tube) 1 appln EXT TID PRN PRN Reason: Pain Stop: 09/05/24 01:08 Last Admin: 08/06/24 02:10 Dose: 1 appln Documented By: THANH Discontinued Medications Bupivacaine HCl/Epinephrine Bitart (Bupivacaine/Epinephrine 0.5% Mpf 1:200,000 30 Ml Vial) Confirm Administered Dose 30 ml .ROUTE .STK-MED ONE Stop: 08/05/24 21:28 Last Admin: 08/05/24 22:20 Dose: 30 ml Documented By: ROB Diphtheria/Pertussis/Tetanus Vacc (Diphther/Tetan/Pertus Vaccine (Tdap, Adol/Adult) 0.5ml) 0.5 ml IM .ONCE ONE Stop: 08/05/24 20:55 Last Admin: 08/05/24 20:58 Dose: 0.5 ml Documented By: MAMIE Cefazolin Sodium (Ancef 2000mg) 2,000 mg in 15 mls @ 3.75 mls/min IV NOW STA Stop: 08/05/24 17:30 Last Admin: 08/05/24 18:05 Dose: 3.75 mls/min Documented By: MORGAN Acetaminophen 650 mg/ EMPTY (BAG) 65 mls @ 400 mls/hr IV ONE ONE; Protocol Stop: 08/05/24 18:54 Last Infusion: 08/05/24 20:27 Dose: Infused Documented By: Admin: 08/05/24 19:14 Dose: 400 mls/hr Documented By: MAMIE Cefazolin Sodium (Ancef 1000mg) 1,000 mg in 7.5 mls @ 2.5 mls/min IV ONCE ONE Stop: 08/05/24 21:54 Last Admin: 08/05/24 21:51 Dose: 2.5 mls/min Documented By: [id number] Sodium Chloride (Nss) 1,000 mls @ 100 mls/hr IV .Q10H [facility] Stop: 08/06/24 06:00 Last Infusion: 08/06/24 06:15 Dose: Infused Documented By: Admin: 08/05/24 23:59 Dose: 100 mls/hr Documented By: THANH Medical Decision Making Laboratory Data 08/06/24 08:04 08/06/24 08:04 Lab Results 08/05/24 Range/Units 17:48 WBC 4.17 L (4.8-10.8) K/ul RBC 3.99 L (4.20-5.40) M/uL Hgb 13.2 (12.0-16.0) g/dl Hct 40.8 (37.0-47.0) % MCV 102.3 H (80.0-100.0) fL MCH 33.1 (25.0-34.0) pg MCHC 32.4 (32.0-36.0) g/dL RDW Std Deviation 45.2 (36.4-46.3) fL RDW Coeff of Bambi 12.0 (11.5-14.5) % Plt Count 150 (130-400) K/uL MPV 9.7 (9.4-12.4) fL Sodium 142 (136-145) mmol/L Potassium 4.1 (3.5-5.1) mmol/L Chloride 108 H (98-107) mmol/L Carbon Dioxide 27 (21-32) mmol/L Anion Gap 7 (3-11) BUN 18 (6-23) mg/dl Creatinine 0.90 (0.6-1.2) mg/dl Est Cr Clr Drug Dosing 66.9 ml/min Est GFR ( Amer) 71.5 ml/min Est GFR (Non-Af Amer) 61.7 ml/min BUN/Creatinine Ratio 20.0 (10-20) Glucose 108 H (70-99(Fasting)) mg/dl Calcium 9.3 (8.6-10.3) mg/dl Imaging Data Radiologist's Impression: Knee X-Ray 08/05/24 17:27 XR knee RT 1 or 2V routine, XR hip RT min 2V HISTORY: 78 years-old Female Fall, R knee pain and laceration acute pain of the right knee and hip status post fall COMPARISON: None TECHNIQUE: 2 views of the right hip with 2 views of the right knee FINDINGS: KNEE: Total joint arthroplasty with patellar resurfacing. Small joint effusion. No acute fracture or dislocation. HIP: [id number] osteoarthritis. No acute fracture or dislocation. Arterial calcifications. IMPRESSION: No acute fracture or dislocation. ACT 112: Negative or not required by law. The above report was generated using voice recognition software. It may contain grammatical, syntax or spelling errors. Electronically signed by: Ruy Mckeon M.D. 08/05/2024 7:08 PM Hip X-Ray 08/05/24 18:30 XR knee RT 1 or 2V routine, XR hip RT min 2V HISTORY: 78 years-old Female Fall, R knee pain and laceration acute pain of the right knee and hip status post fall COMPARISON: None TECHNIQUE: 2 views of the right hip with 2 views of the right knee FINDINGS: KNEE: Total joint arthroplasty with patellar resurfacing. Small joint effusion. No acute fracture or dislocation. HIP: [id number]-cg-[id number] osteoarthritis. No acute fracture or dislocation. Arterial calcifications. IMPRESSION: No acute fracture or dislocation. ACT 112: Negative or not required by law. The above report was generated using voice recognition software. It may contain grammatical, syntax or spelling errors. Electronically signed by: Ruy Mckeon M.D. 08/05/2024 7:08 PM [facility] Narrative Patient was seen and evaluated as above in room D02b. Review was performed of triage nursing notes and vital signs. A thorough history and physical examination was performed. Patient presents to us today for assessment of right knee laceration status post mechanical fall. Patient well-appearing and nontoxic on examination. Large laceration horizontally noted overlying the right knee. Patient does have a history of total right knee replacement. Options of care were discussed with the patient. X-ray was ordered. IV access was established. IV Ancef was ordered. I am concerned noting the distribution and depth of this laceration directly overlying surgical hardware. I discussed this with the on-call orthopedist, Dr. Navarro. I spoke with Dr. Navarro at 5:39 PM on 08/05/2024 regarding the right knee laceration and presentation. Recommendation as the patient had the surgery performed on the right knee by [facility], is to reach out to [facility] at the present time. Xrays, per my interpretation reveal no fracture or dislocation. This was of the right knee as well as right hip area. Formal radiology report is as above and was reviewed. I was notified by our community living coach that they had tried reaching out to the [facility] office which was closed therefore forwarded to the call center and I am being told by our marketing secretary that the call center would not page anyone for this patient and we were instructed to again call our on-call orthopedic surgeon. I then had them reach back out to Dr. Navarro and I spoke with him at 5:[address] Navarro, I did attempt to reach out to Dr. Eason (orthopedic surgeon that performed the procedure) directly without success. Dr. Navarro came to evaluate the patient and the patient will be taken to the operative suite for further evaluation and management. Patient notes her tetanus vaccine is likely not up-to-date nor was administered in the past 10 years therefore update Tdap was ordered. Please refer to further documentation regarding her stay. GCS: 15 In the evaluation and treatment of this patient the following differential diagnoses were entertained: Fracture, dislocation, subluxation, contusion, sprain, strain, among others. Impression & Plan Laceration of knee, right Discharge Plan Visit Data Chief Complaint: Fall Stated Complaint: FALL, L KNEE LAC ED Provider: Mushtaq Love ED Midlevel Provider: Wilder Chopra Discharge Problem: Laceration of knee, right Patient Disposition: Admitted As Inpatient Condition: Good Discharge Instructions Interventions: ED Discharge Assessment Last Done: 08/05/24 21:06
[2024-08-05 18:04] LABS: Hematocrit (blood only) 40.8 % (37.0-47.0); Hemoglobin 13.2 g/dl (12.0-16.0); Mean Corpuscular Hemoglobin 33.1 pg (25.0-34.0); Mean Corpuscular Hgb Conc 32.4 g/dL (32.0-36.0); Mean Corpuscular Volume 102.3 fL (80.0-100.0); Mean Platelet Volume 9.7 fL (9.4-12.4); Platelet Count 150 K/uL (130-400); RDW Standard Deviation 45.2 fL (36.4-46.3); Red Blood Count 3.99 M/uL (4.20-5.40); White Blood Count 4.17 K/ul (4.8-10.8)
[2024-08-05] MEDS: ceFAZolin 2000MG 2,000 MG/15 ML SYR IV STA (18:05)
[2024-08-05 18:21] LABS: Calcium 9.3 mg/dl (8.6-10.3); Creatinine Clr Calc Pharmacy 66.9 ml/min; Est GFR (African American) 71.5 ml/min; Est GFR (Non-African American) 61.7 ml/min; Potassium 4.1 mmol/L (3.5-5.1)
--- NOTE | 2024-08-05 19:09 | XRay Report ---
XR knee RT 1 or 2V routine, XR hip RT min 2V HISTORY: 78 years-old Female Fall, R knee pain and laceration acute pain of the right knee and hip s tatus post fall COMPARISON: None TECHNIQUE: 2 views of the right hip with 2 views of the right knee FINDINGS: KNEE: Total joint arthroplasty with patellar resurfacing. Small joint effusion. No acute fracture or dislocation. HIP: Ukkq-to-tcobyhbs osteoarthritis. No acute fracture or dislocation. Arterial calcifications. IMPRESSION: No acute fracture or dislocation. ACT 112: Negative or not required by law. The above report was generated using voice recognition software. It may contain grammatical, syntax o r spelling errors. Electronically signed by: Ruy Mckeon M.D. 08/05/2024 7:08 PM
[2024-08-05] MEDS: ACETAMINOPHEN 10MG/ML Custom 650 MG in EMPTY BAG 0 ML IV ONE (19:14)
[2024-08-05] MEDS ORDERED: PROPOFOL IV EMULSION 10 MG/ML 20 ML VIAL IV ONE (20:43)
[2024-08-05] MEDS ORDERED: DEXAMETHASONE SOD INJ 4 MG/ML VIAL ONE (20:43)
[2024-08-05] MEDS ORDERED: ONDANSETRON INJ 2 MG/ML 2 ML VIAL ONE (20:43)
[2024-08-05] MEDS ORDERED: KETOROLAC 30 MG/ML VIAL ONE (20:43)
[2024-08-05] MEDS ORDERED: SUCCINYLCHOLINE CHLORIDE 20 MG/ML 10 ML VIAL IV ONE (20:43)
[2024-08-05] MEDS ORDERED: fentaNYL citrate PF 100 MCG/2 ML VIAL ONE ×2 (20:43→21:53)
[2024-08-05] MEDS ORDERED: LIDOCAINE 2% 2 ML VIAL/AMP(20MG/ML) INFIL ONE (20:43)
[2024-08-05] MEDS ORDERED: ROCURONIUM BROMIDE 10 MG/ML 5 ML VIAL IV ONE (20:43)
[2024-08-05] MEDS: DIPHTHER/TETAN/PERTUS Vaccine (Tdap, Adol/Adult) 0.5mL IM ONE (20:58)
--- NOTE | 2024-08-05 21:05 | Anesthesiology Consultation ---
Date of Service August 05, 2024 Assessment & Plan Chart Review Chart Review: Acceptable Risk for Surgery and Patient NOT seen in Pre Admission Testing Consults Requested none ASA ASA2 Proposed Anesthesia Anesthesia Type: General Risk / Benefits Reviewed With: PT / POA / Parent / Guardian, Accepts Plan and Informed Consent Obtained Additional Comments: patient states ate at 2:30 pm. given emergent nature of procedure, will proceed with GA and RSI. History Surgery Operation Date: 08/05/24 21:00 Proposed Procedures p Incision and Drainage Right Knee; Right Quadricep Tendon Repair - Abilio Navarro MD Height/Weight Height: 5 ft 4 in Weight: 120.3 kg Allergies Allergy/AdvReac Type Severity Reaction Status Date / Time Sulfa (Sulfonamide Allergy Intermediate SLOW HEART Verified 03/10/23 05:31 Antibiotics) RATE Medications Home Medications Medication Instructions Recorded Confirmed Last Taken acetaminophen 500 mg tablet 500 mg PO BID 03/04/23 03/10/23 03/10/23 03:30 cyanocobalamin (vitamin B-12) 500 500 mcg PO QAM 03/04/23 03/10/23 02/24/23 07:00 mcg tablet (Vitamin B-12) lisinopril 2.5 mg tablet 2.5 mg PO QAM 03/04/23 03/10/23 03/09/23 08:00 multivitamin 1 tab PO QAM 03/04/23 03/10/23 02/24/23 07:00 omeprazole 20 mg capsule,delayed 20 mg PO QAM 03/04/23 03/10/23 03/10/23 02:30 release simvastatin 40 mg tablet (Zocor) 40 mg PO QAM 03/04/23 03/10/23 03/09/23 20:00 sucralfate 1 gram tablet 1 g PO ACHS PRN severe heartburn 03/04/23 03/10/23 Unknown NPO Date Last Intake of Fluids: 08/05/24 Time Last Intake of Fluids: 14:30 Date Last Intake of Solids: 08/05/24 Time Last Intake of Solids: 14:00 Past Medical History Medical History Degenerative disc disease cervical Kidney stones no surgery - passed on her own Ulcerative colitis doing well, no current issues. History of bleeding ulcers ~ Anemia hx (~) Cardiac murmur as a child - no current issues Exercise / Class Metabolic Activity II 4-5 Yardwork/Stairs/Walk up hill Past Family History Family History Other No family history of adverse response to anesthesia Past Surgical History Surgical History History of repair of rectocele Hx of vaginal hysterectomy History of bilateral tubal ligation History of umbilical hernia repair History of cholecystectomy History of appendectomy History of colonoscopy History of esophagogastroduodenoscopy (EGD) History of tonsillectomy Past Anesthesia History No Hx of Anesthesia Complications and No Family Hx of Anesthesia Complications History of PONV No Hx of PONV and No Hx of Motion Sickness Social History Smoking Status: Never smoker Do You Dip or Chew Tobacco: No Hx Alcohol Use: No Hx Substance Use: No substance use type: does not use Review of Systems ROS Unobtainable: All systems reviewed & are unremarkable except as noted in HPI & below Physical Exam Vital Signs Last Vital Signs Temp 37.0 C 08/05/24 17:17 Pulse 92 H 08/05/24 19:16 Resp 18 08/05/24 19:16 BP 142/70 H 08/05/24 19:16 Pulse Ox 97 08/05/24 19:16 O2 Del Method Room Air 08/05/24 19:16 ENMT Mouth: no TMJ abnormality Thyromental Distance: > or= 3.5 Finger Breadths Mallampati Class: II Neck normal visual inspection and trachea midline; neck extension not limited Respiratory normal respiratory effort Auscultation: lungs clear to auscultation bilaterally Cardiovascular Rate/Rhythm: regular rate and regular rhythm Heart Sounds: no murmur Musculoskeletal Spine: normal cervical ROM Extremities: full ROM of extremities Neurologic moves all extremities Psychiatric Orientation: alert and oriented x 3 Testing Laboratory Results 08/05/24 17:48 08/05/24 17:48 Electrocardiogram Date: 03/04/23 Normal sinus rhythm Right bundle branch block Abnormal ECG When compared with ECG of 18-MAR-2016 10:47, No significant change was found Confirmed by Parviz Romero ([id number]) on 03/05/2023 8:45:01 AM
[2024-08-05] MEDS ORDERED: ATROPINE SULFATE 0.1 MG/ML 10ML SYR IV PRN (21:12)
[2024-08-05] MEDS ORDERED: ONDANSETRON INJ 2 MG/ML 2 ML VIAL IV PRN ×2 (21:12→22:31)
[2024-08-05] MEDS ORDERED: ePHEDrine sulfate 50 MG/ML AMP IV PRN (21:12)
[2024-08-05] MEDS ORDERED: fentaNYL citrate PF 100 MCG/2 ML VIAL IV PRN (21:12)
--- NOTE | 2024-08-05 21:14 | Orthopedic Consultation ---
Date of Consultation August 05, 2024 Assessment & Plan (1) Laceration of knee, right: I discussed with the patient and her family members present that she has a large wound over her right knee where she has hardware from her prior knee replacement. Infection is always a concern after a joint replacement. I think it is in her best interest that she undergo operative irrigation and debridement With possible tendon repair. I reviewed the risks and benefits of the surgery, alternatives to surgery, and expected outcomes. She understands that she could still get an infection even with this operative procedure. She elects to proceed with surgery. All questions were answered. Informed consent was signed. Surgical site was marked. She will proceed to the operating room. Last meal was at 2:30 PM. She is now 7 hours after last meal. Given the urgent nature of her surgery I think it is in her best interest that we do not wait another hour with her wound opened to decrease the risk of infection so we will proceed to the operating room on an urgent basis. Plan on admitting overnight for pain control and IV antibiotics after surgery. History of Present Illness Reason for Consultation: Right knee wound History of Present Illness This is a 78-year-old female that presents to the emergency department via EMS with complaints of "right knee laceration". The patient is an excellent historian and notes that earlier today she tripped on a rug and fell. She landed on a rather hard floor and just underneath the rug was concrete. She landed on both of her anterior knees and notes that the right knee sustained a laceration. She denies striking any sharp objects. She denies striking the head. No anticoagulant use. She does note history of bilateral total knee replacements, right knee replaced in March 2023. The patient denies any other areas of pain beyond the right knee. Ambulance was summoned and she was brought here for further evaluation and management. X-rays were obtained in the ER. No fractures are visualized. Orthopedics was consulted. I saw and examined the patient In the ER. She denies any previous problems with her right knee. No numbness or tingling. She has not tried to walk since the injury so we can assess whether she is able to do that or not. Allergies Allergy/AdvReac Type Severity Reaction Status Date / Time Sulfa (Sulfonamide Allergy Intermediate SLOW HEART Verified 03/10/23 05:31 Antibiotics) RATE Home Medications Medication Instructions Recorded Confirmed Type acetaminophen 500 mg tablet 500 mg PO BID 03/04/23 03/10/23 History cyanocobalamin (vitamin B-12) 500 500 mcg PO QAM 03/04/23 03/10/23 History mcg tablet (Vitamin B-12) lisinopril 2.5 mg tablet 2.5 mg PO QAM 03/04/23 03/10/23 History multivitamin 1 tab PO QAM 03/04/23 03/10/23 History omeprazole 20 mg capsule,delayed 20 mg PO QAM 03/04/23 03/10/23 History release simvastatin 40 mg tablet (Zocor) 40 mg PO QAM 03/04/23 03/10/23 History sucralfate 1 gram tablet 1 g PO ACHS PRN severe heartburn 03/04/23 03/10/23 History Patient History Medical History Degenerative disc disease cervical Kidney stones no surgery - passed on her own Ulcerative colitis doing well, no current issues. History of bleeding ulcers ~ Anemia hx (~) Cardiac murmur as a child - no current issues Surgical History History of repair of rectocele Hx of vaginal hysterectomy History of bilateral tubal ligation History of umbilical hernia repair History of cholecystectomy History of appendectomy History of colonoscopy History of esophagogastroduodenoscopy (EGD) History of tonsillectomy Family History Other No family history of adverse response to anesthesia Social History Smoking Status: Never smoker Second Hand Exposure: No; Do You Dip or Chew Tobacco: No; Hx Alcohol Use: No Hx Substance Use: No Preferred Language: American Communication Ability: Effective House Servant Required: No Beliefs That Will Affect Care: None Current Living Situation: Spouse Feels Safe at Home: Yes Assistive Devices: Walker Physical Exam Physical Exam: Pleasant female no acute distress. Body mass index is elevated at 45. Right knee exam reveals the patient have a transverse laceration at the level of the inferior pole the patella. Laceration measures approximately 10 cm in length. It appears to be oblique in nature starting from proximal superficial and ending distally deep. I can visualize what appears to be the patellar tendon at the base of the wound. I asked her to fire her quadriceps and did not visualize any defects in the extensor mechanism. She is able do a straight leg raise with a extensor lag. Distally she has a palpable dorsalis pedis pulse however foot is cool to the touch. She fires toe extensors toe flexors ankle dorsiflexors and plantar flexors. Results & Data Vital Signs (Past 12 Hours) Vital Signs Temp Pulse Pulse Resp BP BP Pulse Ox 08/05/24 21:06 78 16 136/75 97 08/05/24 19:16 92 H 18 142/70 H 97 08/05/24 17:17 37.0 C 100 H 18 153/86 H 96 O2 Del Method 08/05/24 21:06 Room Air 08/05/24 19:16 Room Air 08/05/24 17:17 Room Air Diagnostic Findings X-rays done in the ER reviewed. She appears to have a well-fixed total knee arthroplasty. No evidence of patellar Baha or patella myrna.
[2024-08-05] MEDS: ceFAZolin 1000MG 1,000 MG/7.5 ML SYR IV ONE (21:51)
[2024-08-05] MEDS ORDERED: PHENYLEPHRINE 100MCG/ML 10ML SYR IV ONE (22:02)
[2024-08-05] MEDS: BUPIVACAINE/EPINEPHRINE 0.5% MPF 1:200,000 30 ML VIAL ONE (22:20)
[2024-08-05] MEDS ORDERED: diphenhydrAMINE 50 MG/ML VIAL IV PRN (22:31)
[2024-08-05] MEDS ORDERED: METOCLOPRAMIDE HCL INJ 5 MG/ML 2 ML VIAL IV PRN (22:31)
[2024-08-05] MEDS ORDERED: MAGNESIUM HYDROXIDE SUSP 30 ML UDC PO PRN (22:31)
[2024-08-05] MEDS ORDERED: bisacodyL 10 MG SUPP PR PRN (22:31)
[2024-08-05] MEDS ORDERED: oxyCODONE HCL IR 5 MG TAB (IMMEDIATE RELEASE) PO PRN (22:31)
[2024-08-05] MEDS ORDERED: NALOXONE HCL 0.4 MG/1 ML VIAL/CARP IV PRN (22:31)
[2024-08-05] MEDS ORDERED: ALUMINUM/MAGNESIUM SUSP 30 ML UDC PO PRN (22:31)
--- NOTE | 2024-08-05 22:31 | Operative Report ---
Post Operative Report Pre & Post Diagnosis Operation Date: 08/05/24 21:00 Pre-Op Diagnosis: (1) Laceration of knee, right Post-Op Diagnosis: (1) Laceration of knee, right I identified the patient and participated in the time-out.: Yes Procedure Operation Date: 08/05/24 21:00 Actual Procedures p Incision and Drainage Right Knee, Repair of Right knee laceration to fascia(Right) - Abilio Navarro MD Surgeon Abilio Navarro MD Motor Vehicle Light Assembler Dave Anderson PA-C Estimated Blood Loss 10 Findings Consistent with Post-Op Diagnosis Specimens none Description of Procedure I was present during the entire case assisting with positioning, prepping, draping, wound retraction, wound closure and dressing application. No fellow present. Please see Dr. Navarro procedure note for specifics of the case. I attest to the content of the Intraoperative Record and any orders documented therein. Any exceptions are noted below.
[2024-08-05] MEDS ORDERED: SUCRALFATE 1 GM TAB PO PRN (22:35)
--- NOTE | 2024-08-05 22:36 | Operative Report ---
Post Operative Report Pre & Post Diagnosis Operation Date: 08/05/24 21:00 Pre-Op Diagnosis: (1) Laceration of knee, right Post-Op Diagnosis: (1) Laceration of knee, right I identified the patient and participated in the time-out.: Yes Procedure Operation Date: 08/05/24 21:00 Actual Procedures Irrigation and debridement Right Knee, Repair of 10 cm Right knee laceration to fascia(Right) - Abilio Navarro MD Surgeon Abilio Navarro MD Strip Mine Supervisor KARLA Anderson PA-C. No resident or fellow was available to assist. Estimated Blood Loss 10 Findings Consistent with Post-Op Diagnosis Specimens none Anesthesia Type General Complications none Disposition Disposition: Recovery Room Indications 78-year-old female, status post a right total knee arthroplasty by Dr. Eason in March 2023. She was doing well until earlier today when she fell sustaining a laceration on the anterior aspect of her right knee. She was brought from the scene by ambulance to the emergency room. I saw and examined her in the ER. X- rays have been obtained. Laceration is approximately 10 cm in length and transverse over the knee. No fractures are visualized on her x-rays. Surgery is indicated to irrigate and debride the wound. I had a long discussion with her about the risks and benefits of surgery, alternatives to surgery, and expected outcomes. After reviewing all these she elected proceed with surgery. All questions were answered. Informed consent was signed. Description of Procedure Patient was identified in the preoperative holding area where her surgical site was marked. She was brought back to the operating room where she is placed on the operating room table and general anesthesia was administered. All bony prominences were padded. Perioperative antibiotics were administered. She was prepped and draped using Betadine in the usual sterile fashion. She had previously received 2 g of IV Ancef in the emergency room approximately 3 hours ago. Therefore she was given another 1 g of IV Ancef prior to incision. I began by irrigating out the wound with a pulse lavage. Approximately 1 L of normal saline was used to irrigate out the wound. I then explored the wound. As noted above, is approximately 10 cm in length and was oriented transversely from medial to lateral at the level of the midportion of the patella.. The wound also tunneled distally underneath the skin all the way down to the level of the tibial tubercle. There was no violation of the anterior or lateral compartment musculature. There was no tunneling proximally. Wound was inspected and there was no gross contamination. Meticulous hemostasis was ensured. The remaining 2 L of normal saline was then irrigated throughout the wound. I then began to close. Deep subcutaneous layer was closed with interrupted buried #1 PDS sutures. The deep dermis was closed with 2-0 PDS in interrupted fashion, buried. Skin was closed with 2-0 Prolene in horizontal mattress fashion. 30 cc of half percent Marcaine was injected in the subcutaneous tissues for postoperative pain control. Sterile dressing was applied consisting of Xeroform, 4 x 4, ABD, Kerlix roll, and Maxim wrap. Patient was then awoke from anesthesia and transferred recovery room in stable condition. Of note she did have some blood in her oropharynx and nasopharynx at the time of extubation without No significant active bleeding noted. Postoperative course: Patient will be admitted overnight for IV antibiotics x 24 hours. She will be discharged tomorrow late afternoon/evening. Weight-bear as tolerated. She should keep this dressing on until 72 hours postop. After that the wound can be left open to air. She should not soak her wound underwater for 3 weeks. Follow-up in 2 weeks for suture removal. No DVT prophylaxis indicated for this small surgery since she is ambulatory. I attest to the content of the Intraoperative Record and any orders documented therein. Any exceptions are noted below.
--- NOTE | 2024-08-05 23:04 | Anesthesiology Progress Note ---
Date of Service August 05, 2024 Anesthesia Post Procedure Vital Signs Vital Signs: Temp Pulse Pulse Resp BP BP BP 08/05/24 22:55 36.8 C 97 H 15 154/85 H 08/05/24 22:45 36.6 C 99 H 16 143/85 H 08/05/24 22:35 36.5 C 97 H 19 124/74 08/05/24 21:06 78 16 136/75 08/05/24 19:16 92 H 18 142/70 H 08/05/24 17:17 37.0 C 100 H 18 153/86 H Pulse Ox O2 Del Method O2 Flow Rate 08/05/24 22:55 93 Room Air 08/05/24 22:45 91 Room Air 08/05/24 22:35 97 Oxymask 4 08/05/24 21:06 97 Room Air 08/05/24 19:16 97 Room Air 08/05/24 17:17 96 Room Air Transfer of Care Handoff Completed per policy Notes Mental Status: alert / awake / arousable Patient Amnestic to Procedure: Yes Nausea / Vomiting: adequately controlled Pain: adequately controlled Airway Patency, RR, SpO2: stable & adequate BP & HR: stable & adequate Hydration State: stable & adequate Anesthetic Complications: no major complications apparent and Pt Satisfied with anesthetic care
[2024-08-05] MEDS: SODIUM CHLORIDE 0.9% 1,000 ML IV SCH (23:59)
[2024-08-06] MEDS: HYDROmorphone INJ 0.5 MG/0.5 ML SYR IV PRN (00:05)
[2024-08-06] MEDS: TROLAMINE SALICYLATE 10% CRM 255 APPLN/85 GM TUBE EXT PRN (02:10)
[2024-08-06] MEDS: ceFAZolin 2000MG 2,000 MG/15 ML SYR IV SCH (04:09)
[2024-08-06] MEDS: ACETAMINOPHEN 500 MG TAB PO SCH (05:26)
[2024-08-06 07:16] VITALS: RESP 16; TEMP 97.9; O2SAT 95
[2024-08-06 08:11] VITALS: BP 118/73; PULSE 87
[2024-08-06] MEDS: MULTIVITAMIN TAB PO SCH (08:11)
[2024-08-06] MEDS: lisinopril 2.5 MG TAB PO SCH (08:11)
[2024-08-06] MEDS: PANTOprazole 40 MG TAB PO SCH (08:12)
[2024-08-06] MEDS: CYANOCOBALAMIN (B-12) 500 MCG TABLET PO SCH (08:12)
[2024-08-06] MEDS: SIMVASTATIN 40 MG TAB PO SCH (08:13)
[2024-08-06] MEDS: DOCUSATE SODIUM 100 MG CAP PO SCH (08:13)
[2024-08-06 08:41] LABS: Hematocrit (blood only) 39.5 % (37.0-47.0); Hemoglobin 12.7 g/dl (12.0-16.0); Mean Corpuscular Hemoglobin 32.8 pg (25.0-34.0); Mean Corpuscular Hgb Conc 32.2 g/dL (32.0-36.0); Mean Corpuscular Volume 102.1 fL (80.0-100.0); Mean Platelet Volume 9.5 fL (9.4-12.4); Platelet Count 145 K/uL (130-400); RDW Coefficient of Variation 12.1 % (11.5-14.5); RDW Standard Deviation 45.8 fL (36.4-46.3); Red Blood Count 3.87 M/uL (4.20-5.40); White Blood Count 4.41 K/ul (4.8-10.8)
[2024-08-06 08:43] LABS: BUN Creatinine Ratio 22.1 (10-20); Calcium 8.7 mg/dl (8.6-10.3); Creatinine Clr Calc Pharmacy 63.2 ml/min; Est GFR (Non-African American) 57.8 ml/min; Potassium 4.5 mmol/L (3.5-5.1)
[2024-08-06] MEDS ORDERED: ACETAMINOPHEN 500 MG TAB PO SCH (09:00)
[2024-08-06] MEDS ORDERED: NON-FORMULARY MEDICATION (Multivitamin Tablet) PO SCH (09:00)
[2024-08-06] MEDS ORDERED: ASPIRIN 81 MG ECTAB PO SCH (09:00)
--- NOTE | 2024-08-06 10:44 | Orthopedic Progress Note ---
Date of Service August 06, 2024 Assessment & Plan (1) Laceration of knee, right: Plan: Weight-bear as tolerated with walker assistance. Keep this dressing on until 72 hours postop. After that the wound can be left open to air. She should not soak her wound underwater for 3 weeks. Patient is scheduled to receive her second dose of Ancef at noon today. After it is completed she may need to be discharged home Follow-up in 2 weeks for suture removal. No DVT prophylaxis indicated for this small surgery since she is ambulatory. Admission and Anticipated Discharge Date Admission Date: August 05, 2024 Subjective This 78-year-old female is day 1 status post irrigation debridement and laceration closure over her right knee. Patient states she is doing very well. She states she has been able to ambulate using her walker around her room and to the bathroom without issue. She states that her pain has been well-controlled with Tylenol. She hopes that she can go home today. Currently she denies chest pain, shortness of breath, fever, Chills, sweats, numbness or tingling in her right lower extremity. She also denies nausea, vomiting, diarrhea or difficulty voiding. Review of Systems Review of Systems: All systems reviewed & are unremarkable except as noted in Subjective Physical Exam Physical Exam: She is able to perform active straight leg raise test and actively dorsi and plantarflex her foot. She is neurovascularly intact.Right lower extremity: Dressing is clean dry and intact and left in place. Patient is able to reach 0 degrees of extension and near 80 degrees of flexion. She is able to detect light sensation to touch over the pads of all digits. Her peripheral pulses are 2+. Results & Data Vital Signs (Past 12 Hours) Vital Signs Temp Pulse Resp BP BP Pulse Ox O2 Del Method 08/06/24 08:10 87 118/73 08/06/24 07:16 36.6 C 90 16 129/73 95 Room Air 08/06/24 01:01 36.7 C 88 18 144/77 H 94 Room Air 08/06/24 00:01 36.7 C 93 H 18 136/74 92 Room Air 08/05/24 23:34 36.6 C 102 H 18 152/85 H 92 Room Air 08/05/24 23:01 36.6 C 102 H 18 156/77 H 96 Room Air 08/05/24 22:55 36.8 C 97 H 15 154/85 H 93 Room Air 08/05/24 22:45 36.6 C 99 H 16 143/85 H 91 Room Air Diagnostic Findings Laboratory Results WBC 4.41 K/ul (4.8-10.8) L 08/06/24 08:04 RBC 3.87 M/uL (4.20-5.40) L 08/06/24 08:04 Hgb 12.7 g/dl (12.0-16.0) 08/06/24 08:04 Hct 39.5 % (37.0-47.0) 08/06/24 08:04 MCV 102.1 fL (80.0-100.0) H 08/06/24 08:04 MCH 32.8 pg (25.0-34.0) 08/06/24 08:04 MCHC 32.2 g/dL (32.0-36.0) 08/06/24 08:04 RDW Std Deviation 45.8 fL (36.4-46.3) 08/06/24 08:04 RDW Coeff of Bambi 12.1 % (11.5-14.5) 08/06/24 08:04 Plt Count 145 K/uL (130-400) 08/06/24 08:04 MPV 9.5 fL (9.4-12.4) 08/06/24 08:04 Sodium 141 mmol/L (136-145) 08/06/24 08:04 Potassium 4.5 mmol/L (3.5-5.1) 08/06/24 08:04 Chloride 111 mmol/L (98-107) H 08/06/24 08:04 Carbon Dioxide 23 mmol/L (21-32) 08/06/24 08:04 Anion Gap 7 (3-11) 08/06/24 08:04 BUN 21 mg/dl (6-23) 08/06/24 08:04 Creatinine 0.95 mg/dl (0.6-1.2) 08/06/24 08:04 Est Cr Clr Drug Dosing 63.2 ml/min 08/06/24 08:04 Est GFR ( Amer) 67.0 ml/min 08/06/24 08:04 Est GFR (Non-Af Amer) 57.8 ml/min 08/06/24 08:04 BUN/Creatinine Ratio 22.1 (10-20) H 08/06/24 08:04 Glucose 120 mg/dl (70-99(Fasting)) H 08/06/24 08:04 Calcium 8.7 mg/dl (8.6-10.3) 08/06/24 08:04 Impressions Knee X-Ray 08/05/24 17:27 XR knee RT 1 or 2V routine, XR hip RT min 2V HISTORY: 78 years-old Female Fall, R knee pain and laceration acute pain of the right knee and hip status post fall COMPARISON: None TECHNIQUE: 2 views of the right hip with 2 views of the right knee FINDINGS: KNEE: Total joint arthroplasty with patellar resurfacing. Small joint effusion. No acute fracture or dislocation. HIP: [id number] osteoarthritis. No acute fracture or dislocation. Arterial calcifications. IMPRESSION: No acute fracture or dislocation. ACT 112: Negative or not required by law. The above report was generated using voice recognition software. It may contain grammatical, syntax or spelling errors. Electronically signed by: Ruy Mckeon M.D. 08/05/2024 7:08 PM Hip X-Ray 08/05/24 18:30 XR knee RT 1 or 2V routine, XR hip RT min 2V HISTORY: 78 years-old Female Fall, R knee pain and laceration acute pain of the right knee and hip status post fall COMPARISON: None TECHNIQUE: 2 views of the right hip with 2 views of the right knee FINDINGS: KNEE: Total joint arthroplasty with patellar resurfacing. Small joint effusion. No acute fracture or dislocation. HIP: [id number] osteoarthritis. No acute fracture or dislocation. Arterial calcifications.
--- NOTE | 2024-08-06 11:43 | Discharge Summary ---
Date of Service August 06, 2024 Admission HPI Per Admitting Provider This is a 78-year-old female that presents to the emergency department via EMS with complaints of "right knee laceration". The patient is an excellent historian and notes that earlier today she tripped on a rug and fell. She landed on a rather hard floor and just underneath the rug was concrete. She landed on both of her anterior knees and notes that the right knee sustained a laceration. She denies striking any sharp objects. She denies striking the head. No anticoagulant use. She does note history of bilateral total knee replacements, right knee replaced in March 2023. The patient denies any other a reas of pain beyond the right knee. Ambulance was summoned and she was brought here for further evaluation and management. X-rays were obtained in the ER. No fractures are visualized. Orthopedics was consulted. I saw and examined the patient In the ER. She denies any previous problems with her right knee. No numbness or tingling. She has not tried to walk since the injury so we can assess whether she is able to do that or not. Admission Exam Per Admitting Provider Pleasant female no acute distress. Body mass index is elevated at 45. Right knee exam reveals the patient have a transverse laceration at the level of the inferior pole the patella. Laceration measures approximately 10 cm in length. It appears to be oblique in nature starting from proximal superficial and ending distally deep. I can visualize what appears to be the patellar tendon at the base of the wound. I asked her to fire her quadriceps and did not visualize any defects in the extensor mechanism. She is able do a straight leg raise with a extensor lag. Distally she has a palpable dorsalis pedis pulse however foot is cool to the touch. She fires toe extensors toe flexors ankle dorsiflexors and plantar flexors. Principal Diagnosis Right knee laceration Discharge Exam She is able to perform active straight leg raise test and actively dorsi and plantarflex her foot. She is neurovascularly intact.Right lower extremity: [place] sing is clean dry and intact and left in place. Patient is able to reach 0 degrees of extension and near 80 degrees of flexion. She is able to detect light sensation to touch over the pads of all digits. Her peripheral pulses are 2+. Discharge Data Allergies Allergy/AdvReac Type Severity Reaction Status Date / Time Sulfa (Sulfonamide Allergy Intermediate SLOW HEART Verified 03/10/23 05:31 Antibiotics) RATE Procedures Performed Operation Date: 08/05/24 21:00 Actual Procedures p Incision and Drainage Right Knee, Repair of Right knee laceration to fascia(Right) - Abilio Navarro MD Hospital Course (1) Laceration of knee, right: Patient had an unknown eventful overnight stay following her surgery. She is very thankful that we were able to care for her last evening. Her plan is to go home later today. We will plan on having her follow-up in the clinic in 2 weeks for suture removal. Weight-bear as tolerated with walker assistance. Keep this dressing on until 72 hours postop. After that the wound can be left open to air. She should not soak her wound underwater for 3 weeks. Patient is scheduled to receive her second dose of Ancef at noon today. After it is completed she may need to be discharged home Follow-up in 2 weeks for suture removal. No DVT prophylaxis indicated for this small surgery since she is ambulatory. Total Time Total Time Spent Total Time Spent (In Minutes): 25 mins Discharge Plan Discharge Items Patient Disposition: Home - Self-Care Reason For Visit: IRRIGATION AND DEBRIDEMENT WITH LACERATION CLOSURE Discharge Diagnosis: left knee laceration Condition on Discharge: Good Activity: As commented below Lifting: None Bathing: Keep incision dry Bathing Comment: May shower tomorrow Sexual Activity: Wait until after follow-up appointment Exercise/Sports: Wait until after follow-up appointment Driving/Machine Use: After suture removal Weightbearing: Right weightbearing Weightbearing Comment: as tolerated with walker assistance Non-emergency contact: Surgeon Call non-emergency contact if: you have any medication questions, your pain is not controlled, your temperature is above 101.5, your wound has increased drainage and your wound pain has increased Follow-up/Referrals: Kasey Dang MD [Primary Care Provider] - Diet: Regular Addtl Attending Provider Instructions: Post-operative Instructions Dear Patient and Family/Friends, Before you are discharged from the hospital, it is important to know what to expect when you get home after surgery. To that end, we have created this sheet of discharge instructions which covers many commonly asked questions. Make sure you go through this sheet in its entirety with your nurse before you are discharged. Please note that we will go over the specifics of your surgery and recovery when you return for your first post-operative visit. Sincerely, Dr. Navarro Medications 1. Tramadol 50 mg: take 1-2 tabs every 4-6 hours as needed for post op pain relief. This will be sent to your pharmacy. 2. Extra Strength Tylenol 500 mg: take 2 tabs every 6-8 hours as needed for pain relief. Please purchase Pain Expect to be in a fair amount of pain after surgery. Remember, our goal is not to eliminate your pain, but to make it tolerable. It is a good idea to stay ahead of your pain by taking the medications you were prescribed once you get home. Typically, the pain starts improving 3-7 days after surgery. You should start weaning off the narcotic pain medication (oxycodone, hydrocodone, hydromorphone, morphine) as soon as your pain improves. Please call our office if your pain is not adequately controlled. Ice Ice your operative site at least 5 times a day for 15-30 minutes at a time. Make sure you have a thin cloth between the ice or cooling unit and your skin to prevent vick bite. This is especially important if you received a nerve block. Continue icing your operative site for the first 5-7 days after surgery, then as needed. Diet/Nausea/Vomiting Start by drinking clear liquids and eating crackers. If you can tolerate this, then you may resume your normal diet. If you feel nauseated or vomit, take Zofran/ondansetron (if prescribed). Please call our office if you have intractable nausea or vomiting, or, if after hours, you may go to the Emergency Room for help. Constipation Constipation is a common side effect of narcotic pain medication. If you have not had a bowel movement within 2 days after surgery, we recommend purchasing an over the counter laxative such as Milk of Magnesia, Dulcolax, or Miralax from a local pharmacy, and taking it as instructed. Call our clinic if any questions. Weight bearing and Range of Motion. Do not bear any weight through your operative extremity immediately after surgery. If you had upper extremity surgery, do not lift anything with that arm. If you are in a knee brace, keep it locked in place until your follow-up. We will discuss your weight bearing, range of motion, and lifting restrictions in detail at your first post-operative appointment. Continuous Passive Motion (CPM) Machine If you were prescribed a CPM machine, it will start after your first post- operative appointment, at which time we will give you instructions on the range of motion settings and duration of treatment Physical therapy You will be given a prescription for physical therapy or occupational therapy at your first post-operative appointment. Typically, patients start therapy within 1 week of surgery Wound care and showering We will inspect your wound at your first post-operative visit, and may do a dressing change at that time. Most patients will be in a water-proof dressing that is removed 14 days after surgery. It is normal to see some dried blood on the dressing. Do not remove your dressing, paper strips or sutures yourself unless you are given permission. Showering is allowed the day after surgery. Do not scrub or remove any dressings. The wound should not be submerged underwater (i.e. in a bathtub or pool) until 4 weeks after surgery DAQUAN stockings If you were given white stockings, these are to be worn at all times except to shower (on both legs) for the first 2 weeks after surgery. Driving You may not drive while taking narcotic pain medication or while in a cast, splint, sling or brace. You, the patient, need to make the final determination about when you are safe to drive, however, the earliest you may consider driving after surgery is below: Hand/Wrist/Elbow Surgery: 3 days Shoulder Surgery: 2 weeks Hip,/Knee/Ankle Surgery: 4 weeks Fracture repair: 6 weeks Return to Work Your return to work depends on what surgery was done and what type of work you do. Please bring any paperwork your employer needs completed to your first post-operative visit. Also, bring a description of your job duties, as this helps us to understand what risks you may face at work. Travel Avoid long distance travel (greater than 1 hour) in airplanes and cars for the first 6 weeks after surgery. If you must travel, you need to have a Doppler ultrasound done before you travel to rule out a blood clot in your legs. Follow-up You should have a follow-up appointment already scheduled 1-2 days after surgery. If not, please contact our office to make this appointment before you leave the hospital. When to call the office It is normal to have swelling and bruising in the limb that was operated on. This will improve with time. It is also normal to have fevers for the first 2 days after surgery. Reasons you should call your doctor include: Uncontrolled pain; Nausea, vomiting, or constipation that does not improve with medication; Fevers over 101.5, chills, sweats; Drainage or bleeding from the wound; Foul odor; Spreading areas of redness; Any other concerns Pending Studies at Discharge: No Stand-Alone Forms: [facility] Medications and DC Order Prescriptions: New tramadol 50 mg tablet 50 mg PO Q4H Qty: 20 0RF Continued multivitamin Tablet 1 tab PO QAM sucralfate 1 gram Tablet 1 g PO ACHS PRN (Reason: severe heartburn) acetaminophen 500 mg Tablet 500 mg PO BID cyanocobalamin (vitamin B-12) [Vitamin B-12] 500 mcg Tablet 500 mcg PO QAM omeprazole 20 mg Capsule,Delayed Release(Dr/Ec) 20 mg PO QAM lisinopril 2.5 mg Tablet 2.5 mg PO QAM simvastatin [Zocor] 40 mg Tablet 40 mg PO QAM Discharge Orders: Discharge Order (Routine); Ordered 08/06/24 Ordered By: Mauricio Anderson Admission Data Admit Date/Time: 08/05/24 22:31 Attending Provider: Abilio Navarro Admit Provider: Abilio Navarro Primary Care Provider: Kasey Dang
[2024-08-06] MEDS ORDERED: SENNA 8.6 MG TAB PO SCH (21:00)
[2024-08-07] MEDS ORDERED: KETOROLAC TROMETHAMINE 15 MG/ML VIAL IV SCH (04:00)
== END 2024-08-06 14:12 | disposition home or self-care (01) ==
LOC: ED 17:10 → OR 21:06 → 3N 21:06